=== PATIENT | female | born 2005 | race Hispanic/Latino ===

== ENCOUNTER 2024-12-29 22:19 | Emergency (ER) | payer OTHER ==
[2024-12-29] MEDS ORDERED: diphenhydrAMINE 25 MG CAP ONE (23:09)
[2024-12-29] MEDS ORDERED: Ibuprofen 200 MG TAB ONE (23:10)
== END 2024-12-29 23:18 | disposition home or self-care (01) ==
LOC: CSHERS 22:19
DX: S50.862A Insect bite (nonvenomous) of left forearm, initial encounter (principal); W57.XXXA Bitten or stung by nonvenomous insect and other nonvenomous arthropods, initial encounter
CPT/HCPCS: 99282